=== PATIENT | male | born 1965 | race Caucasian/White ===

== ENCOUNTER 2024-10-23 00:21 | Observation (INO) | payer OTHER ==
[~2024-10-23] VITALS: Ht 175.3 cm; Wt 77.1 kg
[2024-10-23 01:00] LABS: BASOPHILS ABSOLUTE AUTO 0.07 K/mm3 (0.00-0.23); BASOPHILS PERCENT AUTO 1 % (0-2); EOSINOPHILS ABSOLUTE AUTO 0.17 K/mm3 (0.00-0.68); EOSINOPHILS PERCENT AUTO 1 % (0-6); Hematocrit 46.2 % (37.0-53.0); IMMATURE GRAN ABSOLUTE AUTO 0.02 K/mm3 (0.00-0.10); IMMATURE GRAN PERCENT AUTO 0 % (0-1); LYMPHOCYTES ABSOLUTE AUTO 5.34 K/mm3 (0.84-5.20); LYMPHOCYTES PERCENT AUTO 44 % (21-46); MONOCYTES ABSOLUTE AUTO 1.03 K/mm3 (0.16-1.47); MONOCYTES PERCENT AUTO 8 % (4-13); Mean Corpuscular HGB 29.7 pg (26.0-34.0); Mean Corpuscular HGB Conc 34.6 g/dL (31.5-36.5); Mean Corpuscular Volume 86 fL (80-100); Mean Platelet Volume 11.2 fL (9.1-12.4); NEUTROPHILS ABSOLUTE AUTO 5.65 K/mm3 (1.96-9.15); NEUTROPHILS PERCENT AUTO 46 % (41-73); Platelet Count 204 K/mm3 (150-400); RDW Coefficient Variation 11.9 % (11.7-14.2); RDW Standard Deviation 37.3 fL (35.1-46.3); Red Blood Cell Count 5.38 M/mm3 (4.30-5.90); White Blood Cell Count 12.28 K/mm3 (4.00-11.30)
[2024-10-23 01:17] LABS: Alanine Aminotransfer (ALT/SGP 48 U/L (12-78); Albumin, Blood 4.3 g/dL (3.4-5.0); Albumin/Globulin Ratio 1.2 (0.8-1.8); Alk Phos 131 U/L (50-136); Anion Gap 10 mmol/L (3-11); Aspartate Aminotrans (AST/SGOT 31 U/L (12-37); Bilirubin, Total 1.1 mg/dL (0.1-1.0); Blood Urea Nitrogen 14 mg/dL (8-24); Bun/Creatinine Ratio 18.7 (12.0-20.0); CO2, Blood 23 mmol/L (21-32); Calcium, Blood 9.2 mg/dL (8.5-10.1); Chloride, Blood 106 mmol/L (98-108); Creatinine, Blood 0.75 mg/dL (0.60-1.20); Globulin, Blood 3.5 g/dL (2.2-4.0); Glomerular Filtration Rate 104 (60-); Glucose, Blood 170 mg/dL (70-99); Potassium, Blood 3.6 mmol/L (3.5-5.5); Sodium, Blood 135 mmol/L (136-145); Total Protein, Blood 7.8 g/dL (6.4-8.2)
[2024-10-23 02:56] LABS: Magnesium, Blood 2.1 mg/dL (1.6-2.4)
[2024-10-23] MEDS ORDERED: Potassium Chloride 40 MEQ in NS 250 ML IV ONE (03:00)
[2024-10-23] MEDS ORDERED: FURO20 PO (03:46)
[2024-10-23] MEDS ORDERED: Lisinopril2.5 MG PO (03:46)
[2024-10-23] MEDS ORDERED: ASPI81CH PO (03:47)
[2024-10-23] MEDS ORDERED: ELIQUIS5 M2 PO (03:47)
[2024-10-23] MEDS ORDERED: ATOR80 PO (03:47)
[2024-10-23] MEDS ORDERED: METO100 PO (03:49)
[2024-10-23 04:08] LABS: CHOL/HDL RATIO 3.4; Cholesterol 123 mg/dL (50-200); HDL Cholesterol 36 mg/dL (>39); LDL/HDL RATIO 1.9; Low Density Lipoprotein Chol 68 mg/dL (0-110); Triglycerides 96 mg/dL (30-160); Very Low Density Lipoprot Chol 19 mg/dL (6-32)
[2024-10-23 04:47] VITALS: BP 131/82
[2024-10-23] MEDS ORDERED: NS 250 ML IV PRN (05:05)
[2024-10-23] MEDS ORDERED: Ondansetron HCl 2 MG / ML 2ML Vial IV PRN (05:20)
--- NOTE | 2024-10-23 06:37 | NUR ---
SHIFT SUMMARY PT ADMITTED FOR NEW ONSET AFIB. PT IS ALERT AND ORIENTED TIMES 4. PT HAS HX OF HTN, HLD, CAD, AND AORTIC STINOSIS. PT IS ON TELE RUNNING AFIB 53. PT IS COOPERATIVE WITH CARE, APPROPRIATE WITH CALL LIGHT. PT IS INDEPENDENT AND ABLE TO AMBULATE TO USE TOILET. PT TAKES MEDS WHOLE WITH WATER. BED IS IN LOW POSITION, RAILS TIMES TWO, AND CALL LIGHT IS WITHIN REACH.
[2024-10-23 07:11] VITALS: BP 123/64
[2024-10-23] MEDS ORDERED: Atorvastatin 40 MG Tab PO SCH (09:00)
[2024-10-23] MEDS ORDERED: Aspirin 81 MG Chew PO SCH (09:00)
[2024-10-23] MEDS ORDERED: Apixaban 5 MG Tab PO SCH (09:00)
[2024-10-23] MEDS ORDERED: Lisinopril 5 MG Tab PO SCH (09:00)
[2024-10-23] MEDS ORDERED: Metoprolol Succinate 50 MG TABCR PO SCH (09:00)
[2024-10-23 11:28] VITALS: BP 112/58
--- NOTE | 2024-10-23 18:03 | NUR ---
DISCHARGE: PT D/C @1720 VIA WHEELCHAIR. PT CAR IN PARKING LOT AND STATED HE IS ABLE TO DRIVE HOME. IV REMOVED BY [employer]PER[employer]OR W/O COMPLICATIONS. TELE SENT BACK. MEDICATIONS FAXED TO [facility]. DR. VILLA IN ROOM PRIOR TO D/C TO EXPLAIN ECHO AND MRI RESULTS. NO QUESTIONS AT TIME OF D/C.
== END 2024-10-23 17:29 | disposition home or self-care (01) ==
LOC: ER 00:21 → MEDS 00:22
PROVIDERS: Physician Assistant; ADMIT Internal Medicine
DX: I63.9 Cerebral infarction, unspecified (principal); H53.47 Heteronymous bilateral field defects; R29.701 NIHSS score 1; I48.20 Chronic atrial fibrillation, unspecified; D72.829 Elevated white blood cell count, unspecified; Z66 Do not resuscitate; Z88.0 Allergy status to penicillin; Z79.01 Long term (current) use of anticoagulants
CPT/HCPCS: 36415; 70450; 70496; 70498; 70551; 71046; 80053; 80061; 83735; 83880; 84443; 84484; 85025; 93005; 93010; 93306; 96374; 99285-25; A9270; G0378; J3480; J7050; Q9967